=== PATIENT | female | born 1960 | race Two or more races ===

== ENCOUNTER 2024-06-20 03:47 | Inpatient (IN) | payer OTHER ==
[~2024-06-20] VITALS: Ht 180.3 cm; Wt 97.7 kg
[2024-06-20] VITALS (7 sets, daily range): BP systolic 140–159; BP diastolic 78–87; PULSE 80–109; RESP 16–18; TEMP 97.7–98.2; O2SAT 90–98
[~2024-06-20 03:47] MED LIST: ALPR1TAB7 PO; METF-372 PO; SEMA14TA2 PO
[2024-06-20 04:35] LABS: Basophils # (auto) 0.1 10 ^3/uL (0-0.2); Basophils % (auto) 0.7 % (0.0-2.0); Eosinophils # (auto) 0 10 ^3/uL (0-0.8); Monocytes # (auto) 0.8 10 ^3/uL (0-1.3)
[2024-06-20 04:36] LABS: Eosinophils % (auto) 0.2 % (0.0-7.0); Hemoglobin 15.5 g/dL (12.2-16.2); Lymphocytes # (auto) 1.6 10 ^3/uL (0.4-5.4); Lymphocytes % (auto) 8.9 % (10.0-50.0); Mean Corpuscular Hemoglobin 27.7 pg (28.0-32.0); Mean Corpuscular Volume 83.9 fL (80.0-100.0); Monocytes % (auto) 4.6 % (0.0-12.0); Neutrophils # (auto) 15.4 10 ^3/uL (1.6-8.6); Neutrophils % (auto) 85.6 % (37.0-80.0); Platelet Count (auto) 469 10^3/uL (140-450); Red Cell Distribution Width 16.2 % (11.8-14.3); White Blood Cell 17.9 10^3/uL (4.4-10.8)
[2024-06-20 04:51] LABS: Alanine Aminotransferase 35 U/L (7-40); Albumin 4.8 g/dL (3.2-4.8); Alkaline Phosphatase 102 U/L (46-116); Anion Gap 13 (5-15); Aspartate Aminotransferase 24 U/L (13-40); BUN/Creatinine Ratio 20.3 (10.0-20.0); Bilirubin, Total 0.5 mg/dL (0.2-1.0); Blood Urea Nitrogen 30 mg/dL (9-23); Calcium 11.2 mg/dL (8.7-10.4); Carbon Dioxide 26 mmol/L (20-31); Chloride 97 mmol/L (98-107); Lipase 370 U/L (12-53); Sodium 136 mmol/L (136-145); Total Protein 7.7 g/dL (5.7-8.2)
[2024-06-20 04:52] LABS: Glucose 407 mg/dL (74-106)
[2024-06-20 05:10] LABS: Urine Bacteria None Seen /hpf (None Seen)
[2024-06-20 05:43] LABS: Urine Blood TRACE /uL (Negative); Urine Clarity Clear (Clear); Urine Color Light-Yellow (Yellow); Urine Protein, UAD 3+ (Negative); Urine Specific Gravity 1.026 (1.001-1.035); Urine Urobilinogen Normal (Negative); Urine WBC 2 /hpf (0 - 5)
[2024-06-20] MEDS: InsuLIN REG 1unit/0.01ml Soln (100units/ml) SC ONE (05:59)
[2024-06-20] MEDS: SODIUM CHLORIDE 0.9% 1,000 ML IV ONE (06:00)
--- NOTE | 2024-06-20 06:22 | DVH ---
Exam: CT CT AB PEL WO CON-NO ORAL OR IV History: pancreatitis, infection Comparison Study: None available at time of dictation. TECHNIQUE: Multidetector CT of the abdomen and pelvis was performed from lung bases to ischial tubero sities. Imaging was performed without IV contrast using axial images. Coronal and sagittal reformats were obtained from the axial data set by the technologist. Radiation Dose Information: CT Dose: CTDI volume is 20.6 mGy. Dose-length product is 1266.24 mGy*cm FINDINGS: Evaluation of solid organs is limited due to lack of intravenous contrast use. Findings: Lung Bases: No acute or significant lung base finding. Normal heart size. No pleural or pericardial effusion. Liver: The liver is normal in size. No focal lesions. Hepatic steatosis. Gallbladder and Biliary Tree: The gallbladder is surgically absent. No biliary ductal dilatation. Spleen: Unremarkable Pancreas: Peripancreatic fat stranding. Adrenal Glands: There is a 1.5 cm left adrenal low attenuating nodule. The right adrenal is unremark able. Kidneys: Kidneys are grossly normal without calculi or hydronephrosis. GI Tract: The stomach is grossly normal in appearance. Small bowel is normal in caliber. Sigmoid div erticulosis without acute diverticulitis. Normal appendix. Peritoneal cavity: No pneumoperitoneum. No ascites. Lymphadenopathy: No mesenteric, retroperitoneal or periportal lymphadenopathy. Abdominal Wall and Mesentery: Unremarkable. Vasculature: The visualized abdominal aorta is normal in size and caliber. Evaluation of abdominal a nd pelvic vessels is limited due to lack of intravenous contrast. Pelvic Organs: Unremarkable Urinary Bladder: Grossly unremarkable for degree of distention. Musculoskeletal: No aggressive focal bony lesions, acute fractures or dislocation. Soft tissues: Unremarkable IMPRESSION: 1. Acute interstitial pancreatitis. No peripancreatic collections. 2. Hepatic steatosis. 3. Sigmoid diverticulosis without acute diverticulitis. 4. Cholecystectomy. Radiation optimization: All CT scans at this facility use at least one of these dose optimization diana hniques: automated exposure control mA and/or kV adjustment per patient size (includes targeted exam s where dose is matched to clinical indication) or iterative reconstruction.
[2024-06-20] MEDS: ONDANSETRON HCL 4 MG/2 ML VIAL IV ONE (06:25)
--- NOTE | 2024-06-20 08:13 | ED.PDOC ---
General HPI Comments A 63 year old female presents to the ED with the chief complaint of abdominal pain onset yesterday. Patient states she began experiencing epigastric pain yesterday and woke up today around 05:00 am and began experiencing nausea, vomiting. She rates her pain a 7/10. Patient has a past medical history of DM and HTN and states she ran out of strips and has not checked her BS at home for the past few weeks. Upon ED arrival, patient's BS was 407 and at 06:53 patient's BS increased to 444 and was given 10 units of insulin. No other symptoms or modifying factors present at this time. Chief Complaint: Abdominal Pain Time Seen by MD: 07:05 Primary Care Provider: [facility]- Dr. Wren Reviewed notes: Medications, Allergies Allergies: Coded Allergies: NO KNOWN ALLERGIES (Unverified , 06/20/24) Home Meds Reported Medications Alprazolam (Alprazolam) 1 Mg Tab, 1 MG PO HS 06/20/24 Losartan Potassium (Losartan Potassium) 50 Mg Tab, 50 MG PO DAILY 06/20/24 Fenofibrate (FENOFIBRATE) 145 Mg Tab, 145 MG PO DAILY 06/20/24 Gabapentin (Gabapentin) 300 Mg Cap, 300 MG PO TID 06/20/24 Hctz (Hydrochlorothiazide) 25 Mg Tab, 25 MG PO DAILY 06/20/24 Information Source: Patient Mode of Arrival: Ambulatory Severity: Moderate Timing: Days Duration: Since onset Prehospital treatment: None associated signs and symptoms: Abdominal Pain, Nausea, Vomiting Vital Signs Vital Signs Date Time Temp Pulse Resp B/P (MAP) Pulse Ox O2 Delivery O2 Flow Rate FiO2 06/20/24 08:00 109 16 90 Room Air* 0 21 06/20/24 08:00 97.9 155/81 (105) 97.9 Physical Exam GENERAL: AWAKE, ALERT AND ORIENTED. NO ACUTE DISTRESS. SKIN: SKIN IN WARM, DRY AND INTACT WITHOUT RASHES OR LESIONS. APPROPRIATE COLOR FOR ETHNICITY. NAILBEDS PINK WITH NO CYANOSIS. HEENT: THE HEAD IS NORMOCEPHALIC AND ATRAUMATIC. CONJUNCTIVAE ARE CLEAR WITHOUT EXUDATES OR HEMORRHAGE. SCLERA IS NON-ICTERIC. EOM ARE INTACT. NO SIGNS OF NYSTAGMUS. EYELIDS ARE NORMAL IN APPEARANCE WITHOUT SWELLING OR LESIONS. THE EXTERNAL EAR AND EAR CANAL ARE NON-TENDER AND WITHOUT SWELLING. ORAL MUCOSA IS PINK AND MOIST NECK: THE NECK IS SUPPLE WITH NORMAL RANGE OF MOTION. NO JVD. CARDIAC: HEART RATE AND RHYTHM ARE NORMAL. NO MURMURS, GALLOPS, OR RUBS ARE AUSCULTATED. RESPIRATORY: NO SIGNS OF RESPIRATORY DISTRESS. LUNG SOUNDS ARE CLEAR IN ALL LO BES BILATERALLY WITHOUT RALES, RONCHI, OR WHEEZES. ABDOMINAL: ABDOMEN IS SOFT, POSITIVE EPIGASTRIC TENDERNESS. BOWEL SOUNDS ARE PRESENT AND NORMOACTIVE IN ALL FOUR QUADRANTS. NO GUARDING, REBOUND OR RIGIDITY EXTREMITIES: UPPER AND LOWER EXTREMITIES ARE ATRAUMATIC IN APPEARANCE WITHOUT DEFORMITY OR EDEMA. NEUROLOGICAL: THE PATIENT IS AWAKE, ALERT AND ORIENTED TO PERSON, PLACE, AND TIME WITH NORMAL SPEECH. SPEECH IS CLEAR. THERE IS NO FACIAL ASYMMETRY. PSYCHIATRIC: APPROPRIATE MOOD AND AFFECT. GOOD JUDGEMENT AND INSIGHT. NO VISUAL OR AUDITORY HALLUCINATIONS. Review of Systems: REVIEW OF SYSTEMS: NO FEVER, NO CHILLS, OR FATIGUE HEENT: NO SORE THROAT, EARACHE, OR CONGESTION. NO NECK PAIN. CARDIAC: NO CHEST PAIN. NO PALPITATIONS. LUNGS: NO SHORTNESS OF BREATH OR COUGH. GI: POSITIVE NAUSEA, VOMITING. NO HEMATEMESIS. POSITIVE LOOSE STOOL, NO HEMATOCHEZIA. : NO DYSURIA, FREQUENCY, OR URGENCY. NO HEMATURIA. MUSCULOSKELETAL: NO JOINT PAIN OR SWELLING OR EDEMA. SKIN: NO RASH OR ITCHING. NEURO: NO HEADACHE, DIZZINESS, WEAKNESS Past Medical History PAST MEDICAL HISTORY: DM, HTN Surgical History: Cholecystectomy CLINICAL PROJECT COORDINATOR History: No Pertinent CLINICAL PROJECT COORDINATOR History Family History Family History: Reviewed,noncontributory to illness, No family hx of Cancer, No family hx of DM, No family hx of Heart mati, No family hx of HTN, No family hx ofKidney mati, No family hx of Liver mati, No family hx of Lung mati, No family hx of Stroke Social History Smoker: Non-Smoker Alcohol: Denies ETOH Use Drugs: Denies Drug Use Lives In: Home Was a procedure done? Was a procedure done?: No Differential Diagnosis Kidney stone (Female): N/A Other Differential Diagnosis Differential diagnoses considered include: Abdominal aortic aneurysm, SC, esophageal rupture, intestinal obstruction, mesenteric ischemia, perforated viscus or solid organ rupture, CHF with hepatomegaly, pneumonia, abscess, appendicitis, biliary disease, diverticulitis, gastritis, gastroenteritis, hepatitis, hernia, inflammatory bowel disease, pancreatitis, peptic ulcer disease, ureteral colic, constipation, GERD, irritable syndrome, abdominal wall pain, nonspecific abdominal pain, herpes zoster. X-Ray, Labs, Meds, VS Vital Signs Date Time Temp Pulse Resp B/P (MAP) Pulse Ox O2 Delivery O2 Flow Rate FiO2 06/20/24 08:00 109 16 90 Room Air* 0 21 06/20/24 08:00 97.9 109 16 155/81 (105) 90 97.9 06/20/24 06:34 98 Room Air* 0 21 06/20/24 05:39 98.0 122 18 147/87 (107) 94 98.0 06/20/24 03:58 98.6 126 18 135/92 (106) 96 Lab Test 06/20/24 04:24 06/20/24 04:09 06/20/24 04:07 06/20/24 04:06 Range/Units White Blood Count 17.9 H 4.4-10.8 10^3/uL Red Blood Count 5.60 H 4.0-5.20 10^6/uL Hemoglobin 15.5 12.2-16.2 g/dL Hematocrit 47.0 H 36.0-46.0 % Mean Corpuscular Volume 83.9 80.0-100.0 fL Mean Corpuscular Hemoglobin 27.7 L 28.0-32.0 pg Mean Corpuscular Hemoglobin Concent 33.0 32.0-36.0 g/dL Red Cell Distribution Width 16.2 H 11.8-14.3 % Platelet Count 469 H 140-450 10^3/uL Mean Platelet Volume 8.3 6.9-10.8 fL Neutrophils (%) (Auto) 85.6 H 37.0-80.0 % Lymphocytes (%) (Auto) 8.9 L 10.0-50.0 % Monocytes (%) (Auto) 4.6 0.0-12.0 % Eosinophils (%) (Auto) 0.2 0.0-7.0 % Basophils (%) (Auto) 0.7 0.0-2.0 % Neutrophils # (Auto) 15.4 H 1.6-8.6 10 ^3/uL Lymphocytes # (Auto) 1.6 0.4-5.4 10 ^3/uL Monocytes # (Auto) 0.8 0-1.3 10 ^3/uL Eosinophils # (Auto) 0 0-0.8 10 ^3/uL Basophils # (Auto) 0.1 0-0.2 10 ^3/uL Nucleated Red Blood Cells 0.0 % Sodium Level 136 136-145 mmol/L Potassium Level 5.0 3.5-5.1 mmol/L Chloride Level 97 L 98-107 mmol/L Carbon Dioxide Level 26 20-31 mmol/L Anion Gap 13 5-15 Blood Urea Nitrogen 30 H 9-23 mg/dL Creatinine 1.48 H 0.550-1.02 mg/dL Glomerular Filtration Rate Calc 40 >90 mL/min BUN/Creatinine Ratio 20.3 H 10.0-20.0 Serum Glucose 407 *H 74-106 mg/dL Calcium Level 11.2 H 8.7-10.4 mg/dL Total Bilirubin 0.5 0.2-1.0 mg/dL Aspartate Amino Transferase (AST) 24 13-40 U/L Alanine Aminotransferase (ALT) 35 7-40 U/L Alkaline Phosphatase 102 46-116 U/L Total Protein 7.7 5.7-8.2 g/dL Albumin 4.8 3.2-4.8 g/dL Lipase 370 H 12-53 U/L Urine Color Light-yellow Yellow Urine Clarity Clear Clear Urine pH 6.0 5.0-9.0 Urine Specific [place] 1.026 1.001-1.035 Urine Protein 3+ H Negative Urine Ketones 1+ H Negative Urine Blood Trace H Negative /uL Urine Nitrite Negative Negative Urine Bilirubin Negative Negative Urine Urobilinogen Normal Negative mg/dL Urine Leukocyte Esterase Negative Negative /uL Urine RBC 1 0 - 4 /hpf Urine WBC 2 0 - 5 /hpf Urine Squamous Epithelial Cells Few <5 /hpf Urine Bacteria None seen None Seen /hpf Urine Glucose 4+ H Normal mg/dL POC Glucose 407 *H 407 *H 70-106 mg/dl Current Medications Medications (Trade) Dose Ordered Sig/Wagner Route Start Time Stop Time Status Last Admin Insulin Human Regular (InsuLIN R) 10 units ONCE ONCE SC 06/20/24 05:30 06/20/24 05:31 DC 06/20/24 05:59 Sodium Chloride 1,000 ml @ 1,000 mls/hr Q1H ONCE IV 06/20/24 06:00 06/20/24 06:59 DC 06/20/24 06:00 Ondansetron HCl (Zofran) 4 mg ONCE ONCE IV 06/20/24 06:00 06/20/24 06:01 DC 06/20/24 06:25 [place] [id number] Ph: [phone] DIAGNOSTIC IMAGING Diagnostic Imaging Report : [id number] Signed PATIENT: VANESSA MEDEROSACCT: [id number] UNIT: [id number] : 1960 LOC: ER ROOM / BED: / AGE / SEX: 63 / F ADM STATUS: REG ER SERVICE [id number] ORDERING PHYSICIAN: ANTONETTE BURGER MD PROCEDURE(s): ABPL - CT AB PEL WO CON-NO ORAL OR IV REASON: pancreatitis, infection ORDER NUMBER(s): [id number], ACCESSION NUMBER(s): [id number] Exam: CT CT AB PEL WO CON-NO ORAL OR IV History: pancreatitis, infection Comparison Study: None available at time of dictation. TECHNIQUE: Multidetector CT of the abdomen and pelvis was performed from lung bases to ischial tuberosities. Imaging was performed without IV contrast using axial images. Coronal and sagittal reformats were obtained from the axial data set by the technologist. Radiation Dose Information: CT Dose: CTDI volume is 20.6 mGy. Dose-length product is 1266.24 mGy*cm FINDINGS: Evaluation of solid organs is limited due to lack of intravenous contrast use. Findings: Lung Bases: No acute or significant lung base finding. Normal heart size. No pleural or pericardial effusion. Liver: The liver is normal in size. No focal lesions. Hepatic steatosis. Gallbladder and Biliary Tree: The gallbladder is surgically absent. No biliary ductal dilatation. Spleen: Unremarkable Pancreas: Peripancreatic fat stranding. Adrenal Glands: There is a 1.5 cm left adrenal low attenuating nodule. The right adrenal is unremarkable. Kidneys: Kidneys are grossly normal without calculi or hydronephrosis. GI Tract: The stomach is grossly normal in appearance. Small bowel is normal in caliber. Sigmoid diverticulosis without acute diverticulitis. Normal appendix. Peritoneal cavity: No pneumoperitoneum. No ascites. Lymphadenopathy: No mesenteric, retroperitoneal or periportal lymphadenopathy. Abdominal Wall and Mesentery: Unremarkable. Vasculature: The visualized abdominal aorta is normal in size and caliber. Evaluation of abdominal and pelvic vessels is limited due to lack of intravenous contrast. Pelvic Organs: Unremarkable Urinary Bladder: Grossly unremarkable for degree of distention. Musculoskeletal: No aggressive focal bony lesions, acute fractures or dislocation. Soft tissues: Unremarkable IMPRESSION: 1. Acute interstitial pancreatitis. No peripancreatic collections. 2. Hepatic steatosis. 3. Sigmoid diverticulosis without acute diverticulitis. 4. Cholecystectomy. Radiation optimization: All CT scans at this facility use at least one of these dose optimization techniques: automated exposure control mA and/or kV adjustment per patient size (includes targeted exams where dose is matched to clinical indication) or iterative reconstruction. ATED BY: LAYLA SZYMANSKI MD DICTATED DATE/TIME: 06/20/24618 SIGNED BY: LAYLA SZYMANSKI MD SIGNED DATE/TIME: 06/20/24618 CC: Time of 1ST Reevaluation: 07:35 Reevaluation 1ST: N/A Patient Education/Counseling: Diagnosis, Treatment, Prognosis Family Education/Counseling: No Family Present Comments (Due to unavailability of ER rooms/beds, the patient was initially seen and examined in the ER hallway in order to expedite care. The patient was offered the option to wait for a private ER room/bed to become available but opted to proceed with the hallway examination. ) Departure 1 Departure Time of Disposition: 08:51 Impression: Primary Impression: Acute pancreatitis Additional Impressions: Diabetes mellitus Hyperglycemia Disposition: 09 ADMITTED INPATIENT Condition: Stable Comments 63-YEAR-OLD FEMALE WHO PRESENTED WITH 1 DAY OF EPIGASTRIC PAIN, NAUSEA, VOMITING. WORKUP REVEALS ACUTE PANCREATITIS ASSOCIATED WITH HYPERGLYCEMIA WITHOUT DKA. INSULIN AND IV FLUIDS ADMINISTERED IN THE EMERGENCY DEPARTMENT. PATIENT ADMITTED FOR FURTHER TREATMENT, EVALUATION AND MONITORING. Critical Care Note Critical Care Time?: No Stability Stability form required: No I personally scribed for YOLANDA DE LEON MD ([email or web address]) on 06/20/24 at 08:13. Electronically submitted by Liana Balderrama ([email or web address]). I personally scribed for YOLANDA DE LEON MD ([email or web address]) on 06/20/24 at 08:36. Electronically submitted by Liana Balderrama ([email or web address]). YOLANDA DE LEON MD Jun 20, 2024 08:13
[2024-06-20] MEDS ORDERED: DEXTROSE (50%) 50ML SYRG IV PRN (10:30)
[2024-06-20] MEDS ORDERED: ALPRAZolam 0.5 MG TAB PO PRN (10:30)
[2024-06-20] MEDS ORDERED: FENO145T27 PO (10:32)
[2024-06-20] MEDS ORDERED: GABA-1250 PO (10:32)
[2024-06-20] MEDS ORDERED: LOSA-534 PO (10:32)
[2024-06-20] MEDS ORDERED: HYDR25TA5 PO (10:32)
[2024-06-20] MEDS: LACTATED RINGER'S 1,000 ML IV SCH (10:44)
[2024-06-20] MEDS: ACCU-CHEK COMFORT CURVE STRIP VI SCH (11:12)
[2024-06-20] MEDS: ONDANSETRON HCL 4 MG/2 ML VIAL IV PRN (11:24)
--- NOTE | 2024-06-20 11:31 | DVHHP2 ---
History of Present Illness Reason for Visit: Abdominal pain History of Present Illness 63-year-old female presented to the ED with chief complaint of abdominal pain onset was yesterday, patient describes it as epigastric pain with nausea and vomiting, loose stools, pain is 7/10. Patient reports running out of strips for her Accu-Chek machine and not checking blood sugar at home for the past few weeks. Patient is also noted to have been taking Rybelsus. Upon arrival to the ED patient's blood sugar was 407. CT of the abdomen and pelvis show pancreatitis, WBCs 17.9, absolute neutrophils 15.4, chloride 97, BUN 30, creatinine 1.48, lipase 370. Patient was placed on fluids, pain meds p.r.n., Accu-Cheks q.4 with aggressive insulin sliding scale coverage until blood sugars are under control. Last episode of vomiting was early this morning prior to hospital. Patient denies chest pain, headache, dizziness, diaphoresis, shortness of breath, vomiting, fever, or chills endorsed by the patient. Patient was admitted for further evaluation medical management. Past Medical History Diabetes mellitus type 2, hypertension, hyperlipidemia, obesity Past Surgical History Cholecystectomy, tubal ligation Family History Reviewed noncontributory to the management of this case Smoke: <1 pack per day ALCOHOL: none Drugs: None Lives: Alone Review of Systems Constitutional: No: Fever, Chills, Sweats, Weakness, Malaise, Other Eyes: No: Pain, Vision change, Conjunctivae inflammation, Eyelid inflammation, Other, Redness ENT: No: Ear pain, Ear discharge, Nose pain, Nose discharge, Nose congestion, Mouth pain, Mouth swelling, Throat pain, Throat swelling, Other Respiratory: No: Cough, Dry, Shortness of breath, SOB with excertion, Wheezing, Hemoptysis, Pleuritic Pain, Sputum, Wheezing, Other Cardiovascular: No: Chest Pain, Palpitations, Orthopnea, Paroxysmal Noc. Dyspnea, Edema, Lt Headedness, Other Gastrointestinal: Nausea, Vomiting, Abdominal Pain; No: Diarrhea, Constipation, Melena, Hematochezia, Other Genitourinary: No Dysuria, No Frequency, No Incontinence, No Hematuria, No Retention, No Other Musculoskeletal: No: other, neck pain, shoulder pain, arm pain, back pain, hand pain, leg pain, foot pain Skin: No: Rash, Lesions, Jaundice, Bruising, Other Neurological: No: Weakness, Numbness, Incoordination, Change in speech, Confusion, Seizures, Other Allergies: Coded Allergies: NO KNOWN ALLERGIES (Unverified , 06/20/24) Medications Current Medications Medications Dose Ordered Sig/Wagner Route Start Time Stop Time Status Last Admin Dose Admin Ondansetron HCl 4 mg Q4HP PRN IV 06/20/24 10:15 Morphine Sulfate 2 mg Q4HPRN PRN IV 06/20/24 10:15 Lactated Ringer's 1,000 ml @ 125 mls/hr Q8H IV 06/20/24 10:15 06/20/24 10:44 125 MLS/HR Diagnostic Test (Pha) 1 strip IQ4HR 06/20/24 12:00 06/20/24 11:12 1 STRIP Insulin Human Regular IQ4HR SC 06/20/24 12:00 Dextrose 50 ml UD PRN IV 06/20/24 10:30 Gabapentin 300 mg TID PO 06/20/24 14:00 Hydrochlorothiazide 25 mg DAILY PO 06/21/24 10:00 Losartan Potassium 50 mg DAILY PO 06/21/24 10:00 Alprazolam 1 mg HS PRN PO 06/20/24 10:30 Exam Vital Signs Vital Signs Date Time Temp Pulse Resp B/P (MAP) Pulse Ox O2 Delivery O2 Flow Rate FiO2 06/20/24 10:25 98.0 107 17 143/82 (102) 91 98.0 06/20/24 08:00 Room Air* 0 21 General Appearance: Alert, Oriented X3, Cooperative, mild distress HEENT: Atraumatic, PERRLA, EOMI, Mucous membr. moist/pink Respiratory: Clear to auscultation, Normal air movement Cardiovascular: Regular rate, Normal S1, Normal S2, No murmurs Abdominal: Normal bowel sounds, Soft, No hepatospenomegaly, No masses, Other (Abdominal tenderness left upper abdomen and mid abdomen) Extremities: No clubbing, No cyanosis, No edema, Normal pulses, No tenderness/swelling Skin: No rashes, No breakdown, No significant lesion Neuro: Normal gait, Normal speech, Strength at 5/5 X4 ext, Normal tone, Sensation intact, Cranial nerves 3-12 NL, Reflexes 2+ Psych/Mental Status: Mental status NL, Mood NL Labs/Xrays Labs, imaging and ED notes reviewed Labs Test 06/20/24 11:00 06/20/24 04:24 06/20/24 04:09 Range/Units POC Glucose 331 H 70-106 mg/dl White Blood Count 17.9 H 4.4-10.8 10^3/uL Red Blood Count 5.60 H 4.0-5.20 10^6/uL Hemoglobin 15.5 12.2-16.2 g/dL Hematocrit 47.0 H 36.0-46.0 % Mean Corpuscular Volume 83.9 80.0-100.0 fL Mean Corpuscular Hemoglobin 27.7 L 28.0-32.0 pg Mean Corpuscular Hemoglobin Concent 33.0 32.0-36.0 g/dL Red Cell Distribution Width 16.2 H 11.8-14.3 % Platelet Count 469 H 140-450 10^3/uL Mean Platelet Volume 8.3 6.9-10.8 fL Neutrophils (%) (Auto) 85.6 H 37.0-80.0 % Lymphocytes (%) (Auto) 8.9 L 10.0-50.0 % Monocytes (%) (Auto) 4.6 0.0-12.0 % Eosinophils (%) (Auto) 0.2 0.0-7.0 % Basophils (%) (Auto) 0.7 0.0-2.0 % Neutrophils # (Auto) 15.4 H 1.6-8.6 10 ^3/uL Lymphocytes # (Auto) 1.6 0.4-5.4 10 ^3/uL Monocytes # (Auto) 0.8 0-1.3 10 ^3/uL Eosinophils # (Auto) 0 0-0.8 10 ^3/uL Basophils # (Auto) 0.1 0-0.2 10 ^3/uL Nucleated Red Blood Cells 0.0 % Sodium Level 136 136-145 mmol/L Potassium Level 5.0 3.5-5.1 mmol/L Chloride Level 97 L 98-107 mmol/L Carbon Dioxide Level 26 20-31 mmol/L Anion Gap 13 5-15 Blood Urea Nitrogen 30 H 9-23 mg/dL Creatinine 1.48 H 0.550-1.02 mg/dL Glomerular Filtration Rate Calc 40 >90 mL/min BUN/Creatinine Ratio 20.3 H 10.0-20.0 Serum Glucose 407 *H 74-106 mg/dL Calcium Level 11.2 H 8.7-10.4 mg/dL Total Bilirubin 0.5 0.2-1.0 mg/dL Aspartate Amino Transferase (AST) 24 13-40 U/L Alanine Aminotransferase (ALT) 35 7-40 U/L Alkaline Phosphatase 102 46-116 U/L Total Protein 7.7 5.7-8.2 g/dL Albumin 4.8 3.2-4.8 g/dL Lipase 370 H 12-53 U/L Urine Color Light-yellow Yellow Urine Clarity Clear Clear Urine pH 6.0 5.0-9.0 Urine Specific [place] 1.026 1.001-1.035 Urine Protein 3+ H Negative Urine Ketones 1+ H Negative Urine Blood Trace H Negative /uL Urine Nitrite Negative Negative Urine Bilirubin Negative Negative Urine Urobilinogen Normal Negative mg/dL Urine Leukocyte Esterase Negative Negative /uL Urine RBC 1 0 - 4 /hpf Urine WBC 2 0 - 5 /hpf Urine Squamous Epithelial Cells Few <5 /hpf Urine Bacteria None seen None Seen /hpf Urine Glucose 4+ H Normal mg/dL Assessment/Plan Assessment/Plan Acute pancreatitis Admit to medical/surgical Pain medications p.r.n. Friend p.r.n. nausea Acute kidney failure Consult nephrology- follow up recommendations Monitor labs Supplement as needed Uncontrolled diabetes mellitus type 2 Accu-Cheks a.c. HS Aggressive insulin sliding scale FEN/PPX Clear liquid diet IV fluids to LR Plan discussed with: Patient My Orders Orders - ANTONIO RIVERA SYSTEMS SECURITY ANALYST Procedure Category Date Status Time Admit ADMIT 06/20/24 Transmitted 10:04 Code Status CODE 06/20/24 Transmitted 10:04 Vital Signs [facility] 06/20/24 In Process 10:04 Review Orders With [facility] 06/20/24 In Process Adm. 10:04 Up Ad Azul [facility] 06/20/24 In Process 10:04 Notify Md Of Changes [facility] 06/20/24 In Process From Base 10:04 Advance Directive [facility] 06/20/24 In Process 10:04 Complete Blood Count LAB 06/21/24 Verified 04:00 Patient Condition ORDERS 06/20/24 Transmitted 10:04 Allergies GILMA 06/20/24 In Process 10:04 Ondansetron Hcl PHA 06/20/24 In Process (Zofran) 10:15 Morphine Sulfate PHA 06/20/24 In Process Injection 10:15 Comprehensive LAB 06/21/24 Verified Metabolic Panel 04:00 Lactated Ringer's PHA 06/20/24 In Process 10:15 Clear Liq Diet DIET 06/20/24 Transmitted Lunch Glucose Blood PHA 06/20/24 In Process (Accu-Chek Comfort 12:00 Insulin R (Human) PHA 06/20/24 In Process (Insulin R) 12:00 Dextrose 50% Syringe PHA 06/20/24 In Process 10:30 Gabapentin Capsule PHA 06/20/24 In Process (Neurontin Capsule) 14:00 Hydrochlorothiazide PHA 06/21/24 In Process Tablet (Hydrochlorot 10:00 Losartan Tablet PHA 06/21/24 In Process (Cozaar Tablet) 10:00 Alprazolam Tablet PHA 06/20/24 In Process (Xanax Tablet) 10:30 Date of Service: Jun 20, 2024 Billing Provider: ANTONIO RIVERA Common Visit Codes: [id number] INP/OBS CARE (HIGH) ANTONIO RIVERA Jun 20, 2024 11:31
[2024-06-20] MEDS: InsuLIN REG 1unit/0.01ml Soln (100units/ml) SC SCH (12:06)
--- NOTE | 2024-06-20 13:33 | DVHINCON2 ---
Date of service: Jun 20, 2024 Referring Physician ANTONIO RIVERA Reason for Consultation Acute kidney injury History of Present Illness Patient is a 63-year-old female past medical history of hypertension diabetes mellitus and hyperlipidemia and neuropathy who was admitted with severe epiga stric pain associated with nausea vomiting for one day. On admission patient found to have elevated BUN creatinine nephrology is consulted for acute kidney injury Past Medical History Diabetes mellitus Hypertension Hyperlipidemia Neuropathy Past Surgical History Patient denies Allergies: Coded Allergies: NO KNOWN ALLERGIES (Unverified , 06/20/24) Home Meds Reported Medications Alprazolam (Alprazolam) 1 Mg Tab, 1 MG PO HS 06/20/24 Losartan Potassium (Losartan Potassium) 50 Mg Tab, 50 MG PO DAILY 06/20/24 Fenofibrate (FENOFIBRATE) 145 Mg Tab, 145 MG PO DAILY 06/20/24 Gabapentin (Gabapentin) 300 Mg Cap, 300 MG PO TID 06/20/24 Hctz (Hydrochlorothiazide) 25 Mg Tab, 25 MG PO DAILY 06/20/24 Current Medications Current Medications Medications (Trade) Dose Ordered Sig/Wagner Route PRN Reason Start Time Stop Time Status Last Admin Hydrochlorothiazide (hydroCHLOROthiazide TABLET) 25 mg DAILY PO 06/21/24 10:00 06/21/24 09:27 Losartan Potassium (Cozaar Tablet) 50 mg DAILY PO 06/21/24 10:00 Acetaminophen/ Hydrocodone Bitart ([place] 10/325MG Tab) 1 tab Q4HP PRN PO MODERATE PAIN (4-6 PAIN SCALE) 06/21/24 10:30 06/21/24 11:29 Review of Systems All 12 items ROS reviewed with the patient none is significant except what is mentioned in the HPI H&P Exam Vital Signs/I&O Vital Sign Date Time Temp Pulse Resp B/P (MAP) Pulse Ox O2 Delivery O2 Flow Rate FiO2 06/21/24 16:58 98.2 89 17 122/78 (93) 93 98.2 06/21/24 08:00 Room Air* 0 21 Intake and Output 06/20/24 06/21/24 19:00 07:00 Intake Total 1375 ml 1125 ml Balance 1375 ml 1125 ml Intake Oral 0 ml 500 ml IV Total 1375 ml 625 ml # Voids 1 Physical Exam Patient awake and alert Moderate abdominal distress Lung: clear b/l COR: RRR GI: epigastric tenderness . NL Ext: no CCE Neuro: none focal Labs/Diagnostic Data Labs/Diagnostic Data Laboratory Tests Test 06/21/24 12:39 06/21/24 09:30 06/21/24 05:53 06/20/24 19:52 Range/Units POC Glucose 181 H 197 H 200 H 70-106 mg/dl White Blood Count 10.9 #H 4.4-10.8 10^3/uL Red Blood Count 4.90 4.0-5.20 10^6/uL Hemoglobin 13.7 12.2-16.2 g/dL Hematocrit 40.9 # 36.0-46.0 % Mean Corpuscular Volume 83.5 80.0-100.0 fL Mean Corpuscular Hemoglobin 27.9 L 28.0-32.0 pg Mean Corpuscular Hemoglobin Concent 33.4 32.0-36.0 g/dL Red Cell Distribution Width 16.0 H 11.8-14.3 % Platelet Count 307 140-450 10^3/uL Mean Platelet Volume 8.3 6.9-10.8 fL Neutrophils (%) (Auto) 74.6 37.0-80.0 % Lymphocytes (%) (Auto) 16.8 10.0-50.0 % Monocytes (%) (Auto) 7.2 0.0-12.0 % Eosinophils (%) (Auto) 1.0 0.0-7.0 % Basophils (%) (Auto) 0.4 0.0-2.0 % Neutrophils # (Auto) 8.1 1.6-8.6 10 ^3/uL Lymphocytes # (Auto) 1.8 0.4-5.4 10 ^3/uL Monocytes # (Auto) 0.8 0-1.3 10 ^3/uL Eosinophils # (Auto) 0.1 0-0.8 10 ^3/uL Basophils # (Auto) 0 0-0.2 10 ^3/uL Nucleated Red Blood Cells 0.1 % Sodium Level 139 136-145 mmol/L Potassium Level 3.8 3.5-5.1 mmol/L Chloride Level 101 98-107 mmol/L Carbon Dioxide Level 29 20-31 mmol/L Anion Gap 9 5-15 Blood Urea Nitrogen 25 H 9-23 mg/dL Creatinine 1.20 H 0.550-1.02 mg/dL Glomerular Filtration Rate Calc 52 >90 mL/min BUN/Creatinine Ratio 20.8 H 10.0-20.0 Serum Glucose 189 H 74-106 mg/dL Calcium Level 9.8 8.7-10.4 mg/dL Total Bilirubin 0.5 0.2-1.0 mg/dL Aspartate Amino Transferase (AST) 15 13-40 U/L Alanine Aminotransferase (ALT) 20 7-40 U/L Alkaline Phosphatase 85 46-116 U/L Total Protein 6.1 5.7-8.2 g/dL Albumin 3.8 3.2-4.8 g/dL Test 06/20/24 16:33 06/20/24 11:00 06/20/24 04:24 06/20/24 04:09 Range/Units POC Glucose 272 H 331 H 70-106 mg/dl White Blood Count 17.9 H 4.4-10.8 10^3/uL Red Blood Count 5.60 H 4.0-5.20 10^6/uL Hemoglobin 15.5 12.2-16.2 g/dL Hematocrit 47.0 H 36.0-46.0 % Mean Corpuscular Volume 83.9 80.0-100.0 fL Mean Corpuscular Hemoglobin 27.7 L 28.0-32.0 pg Mean Corpuscular Hemoglobin Concent 33.0 32.0-36.0 g/dL Red Cell Distribution Width 16.2 H 11.8-14.3 % Platelet Count 469 H 140-450 10^3/uL Mean Platelet Volume 8.3 6.9-10.8 fL Neutrophils (%) (Auto) 85.6 H 37.0-80.0 % Lymphocytes (%) (Auto) 8.9 L 10.0-50.0 % Monocytes (%) (Auto) 4.6 0.0-12.0 % Eosinophils (%) (Auto) 0.2 0.0-7.0 % Basophils (%) (Auto) 0.7 0.0-2.0 % Neutrophils # (Auto) 15.4 H 1.6-8.6 10 ^3/uL Lymphocytes # (Auto) 1.6 0.4-5.4 10 ^3/uL Monocytes # (Auto) 0.8 0-1.3 10 ^3/uL Eosinophils # (Auto) 0 0-0.8 10 ^3/uL Basophils # (Auto) 0.1 0-0.2 10 ^3/uL Nucleated Red Blood Cells 0.0 % Sodium Level 136 136-145 mmol/L Potassium Level 5.0 3.5-5.1 mmol/L Chloride Level 97 L 98-107 mmol/L Carbon Dioxide Level 26 20-31 mmol/L Anion Gap 13 5-15 Blood Urea Nitrogen 30 H 9-23 mg/dL Creatinine 1.48 H 0.550-1.02 mg/dL Glomerular Filtration Rate Calc 40 >90 mL/min BUN/Creatinine Ratio 20.3 H 10.0-20.0 Serum Glucose 407 *H 74-106 mg/dL Hemoglobin A1c 10.2 H <5.7 % A1C Uric Acid 9.9 H 3.1-7.8 mg/dL Calcium Level 11.2 H 8.7-10.4 mg/dL Phosphorus Level 4.7 2.4-5.1 mg/dL Magnesium Level 2.1 1.6-2.6 mg/dL Total Bilirubin 0.5 0.2-1.0 mg/dL Aspartate Amino Transferase (AST) 24 13-40 U/L Alanine Aminotransferase (ALT) 35 7-40 U/L Alkaline Phosphatase 102 46-116 U/L B-Type Natriuretic Peptide 11.67 0-100 pg/mL Total Protein 7.7 5.7-8.2 g/dL Albumin 4.8 3.2-4.8 g/dL Lipase 370 H 12-53 U/L Vitamin D 25-Hydroxy 23.1 L 30.0-100 ng/mL Parathyroid Hormone (Intact) 15.2 L 18.4-80.1 pg/mL Urine Color Light-yellow Yellow Urine Clarity Clear Clear Urine pH 6.0 5.0-9.0 Urine Specific [place] 1.026 1.001-1.035 Urine Protein 3+ H Negative Urine Ketones 1+ H Negative Urine Blood Trace H Negative /uL Urine Nitrite Negative Negative Urine Bilirubin Negative Negative Urine Urobilinogen Normal Negative mg/dL Urine Leukocyte Esterase Negative Negative /uL Urine RBC 1 0 - 4 /hpf Urine WBC 2 0 - 5 /hpf Urine Squamous Epithelial Cells Few <5 /hpf Urine Bacteria None seen None Seen /hpf Urine Creatinine 41.09 30.0-125.0 mg/dL Urine Protein/Creatinine Ratio 6.91 Urine Sodium 32 L 40-220 mmol/L Urine Glucose 4+ H Normal mg/dL Urine Total Protein 283.9 H 1-14 mg/dL Test 06/20/24 04:07 06/20/24 04:06 Range/Units POC Glucose 407 *H 407 *H 70-106 mg/dl Assessment Acute kidney injury superimposed Chronic Kidney Disease secondary hemodynamic mediated Acute pancreatitis, likely due to GLP1-RA Diabetes mellitus type 2 Hyperglycemia Dehydration Hypertension Hyperlipidemia Recommendations Closely monitor fluid and electrolytes Avoid nephrotoxic medications Strict I&Os I agree with IV fluid hydration d/c GLP1-RA Insulin sliding scale Check urine electrolytes and urine protein excretion Kidney reported within normal limit on CT scan Pain management GI consult We will continue to follow Patient seen and examined by myself. I discussed my plan of care with the patient and primary nurse at the bedside I would like to thank ANTONIO for the consult, will follow up Plan discussed with: Patient ERI TIRADO MD Jun 20, 2024 13:33
[2024-06-20] MEDS: GABAPENTIN 300 MG CAP PO SCH (14:00)
[2024-06-20 14:01] LABS: Creatinine, Urine 41.09 mg/dL (30.0-125.0)
[2024-06-20 14:04] LABS: Protein, Urine 283.9 mg/dL (1-14); Urine Protein/Creatinine Ratio 6.91
[2024-06-20 14:20] LABS: Magnesium 2.1 mg/dL (1.6-2.6)
[2024-06-20 14:22] LABS: Phosphorus 4.7 mg/dL (2.4-5.1)
[2024-06-20] MEDS: MORPHINE SULFATE INJ 2 MG/ml SYRG IV PRN (17:13)
[2024-06-21] VITALS (7 sets, daily range): BP systolic 122–142; BP diastolic 60–98; PULSE 85–91; RESP 16–18; TEMP 98.1–98.3; O2SAT 92–93
[2024-06-21 06:58] LABS: Basophils # (auto) 0 10 ^3/uL (0-0.2); Basophils % (auto) 0.4 % (0.0-2.0); Eosinophils # (auto) 0.1 10 ^3/uL (0-0.8); Hematocrit 40.9 % (36.0-46.0); Hemoglobin 13.7 g/dL (12.2-16.2); Lymphocytes # (auto) 1.8 10 ^3/uL (0.4-5.4); Lymphocytes % (auto) 16.8 % (10.0-50.0); Mean Corpuscular Hemoglobin 27.9 pg (28.0-32.0); Mean Corpuscular Hgb Conc. 33.4 g/dL (32.0-36.0); Mean Corpuscular Volume 83.5 fL (80.0-100.0); Monocytes # (auto) 0.8 10 ^3/uL (0-1.3); Monocytes % (auto) 7.2 % (0.0-12.0); Neutrophils # (auto) 8.1 10 ^3/uL (1.6-8.6); Neutrophils % (auto) 74.6 % (37.0-80.0); Nucleated Red Blood Cells % 0.1 %; Platelet Count (auto) 307 10^3/uL (140-450); White Blood Cell 10.9 10^3/uL (4.4-10.8)
[2024-06-21 07:17] LABS: Alanine Aminotransferase 20 U/L (7-40); Albumin 3.8 g/dL (3.2-4.8); Alkaline Phosphatase 85 U/L (46-116); Anion Gap 9 (5-15); BUN/Creatinine Ratio 20.8 (10.0-20.0); Blood Urea Nitrogen 25 mg/dL (9-23); Calcium 9.8 mg/dL (8.7-10.4); Carbon Dioxide 29 mmol/L (20-31); Chloride 101 mmol/L (98-107); Glucose 189 mg/dL (74-106); Potassium 3.8 mmol/L (3.5-5.1); Sodium 139 mmol/L (136-145)
[2024-06-21 07:18] LABS: Aspartate Aminotransferase 15 U/L (13-40); Bilirubin, Total 0.5 mg/dL (0.2-1.0); Total Protein 6.1 g/dL (5.7-8.2)
[2024-06-21] MEDS: LOSARTAN POTASSIUM 50 MG TAB PO SCH (09:22)
[2024-06-21] MEDS: hydroCHLOROthiazide 25 MG TAB PO SCH (09:27)
[2024-06-21] MEDS: HYDROcodone-ACET 10/325MG TAB PO PRN (11:29)
--- NOTE | 2024-06-21 13:39 | DVHPN2 ---
Progress Note Date Seen: Jun 21, 2024 Resident Creating Document: JHAJSTEPHANIE RivasSUSANBURKE RESIDENT Medical Necessity Reason Pt with a Central, PICC or Fol: No Subjective Review of Systems Patient is a 63-year-old female with a past medical history of type 2 diabetes mellitus, hypertension, hyperlipidemia came to the ED with a chief complaint of abdominal pain for 1 day prior to admission. Patient reported epigastric abdominal pain associated with nausea and vomiting pain radiating to the back. On admission patient found to have elevated BUN and creatinine nephrology was consulted for acute kidney injury Review of systems Patient seen and examined at the bedside. Patient is alert and oriented to time, place and person. Patient's blood pressure at the time of examination 122/64 mmHg, heart rate 90 per minute regular, SpO2 92% on room air. Patient complains of mild abdominal pain and moderate tenderness in the epigastrium. Patient reported that she is tolerating water without any nausea or vomiting. Other Systems: Patient seen and examined by myself with the resident, I agree with his assement and plan Objective vital signs Vital Sign Date Time Temp Pulse Resp B/P (MAP) Pulse Ox O2 Delivery O2 Flow Rate FiO2 06/21/24 09:27 122/64 06/21/24 09:01 98.3 90 17 92 98.3 06/21/24 08:00 Room Air* 0 21 Total Intake and Output 06/20/24 06/20/24 06/21/24 15:00 23:00 07:00 Intake Total 1000 ml 1000 ml 500 ml Balance 1000 ml 1000 ml 500 ml medications Current Medications Medications Dose Ordered Sig/Wagner Route Start Time Stop Time Status Last Admin Dose Admin Ondansetron HCl 4 mg Q4HP PRN IV 06/20/24 10:15 06/20/24 17:13 4 MG Morphine Sulfate 2 mg Q4HPRN PRN IV 06/20/24 10:06/20/24 17:13 2 MG Lactated Ringer's 1,000 ml @ 125 mls/hr Q8H IV 06/20/24 10:15 06/21/24 09:39 125 MLS/HR Diagnostic Test (Pha) 1 strip IQ4HR 06/20/24 12:00 06/21/24 12:37 1 STRIP Insulin Human Regular IQ4HR SC 06/20/24 12:00 10/30/24 12:46 4 UNITS Dextrose 50 ml UD PRN IV 06/20/24 10:30 Gabapentin 300 mg TID PO 06/20/24 14:00 06/21/24 05:25 300 MG Hydrochlorothiazide 25 mg DAILY PO 06/21/24 10:00 06/21/24 09:27 25 MG Losartan Potassium 50 mg DAILY PO 06/21/24 10:00 Alprazolam 1 mg HS PRN PO 06/20/24 10:30 Acetaminophen/ Hydrocodone Bitart 1 tab Q4HP PRN PO 06/21/24 10:30 06/21/24 11:29 1 TAB Examination Physical Examination Gen - no pallor, no icterus, no cyanosis, no clubbing, no LAD, no edema . Skin - Patients skin is warm and dry.. HEENT - normocephalic, atraumatic, moist mucous membranes. Neck - full ROM, no LAD, no JVD Pulmonary - B/L vesicular breath sounds. no crackles , no wheezing, no stridor. cardiovascular - normal S1,S2 heard. no murmurs heard. peripheral pulses normal radial 2+, pedal 2+. capillary refill normal <2 secs. GI - soft abdomen with tenderness to palpation in the epigastrium . no hepatospleenomegaly. Bowel sounds+ Neurological - Patient is A/O X 3 . Bilateral upper extremity strength 5/5, bilateral lower extremity strength 5/5, no facial droop, normal speech, no tremor, no sensory deficiets. laboratory and microbiology Laboratory Tests 06/21/24 05:53 Test 06/21/24 05:53 Range/Units Serum Glucose 189 H 74-106 mg/dL Problem List/Assessment/Plan Problem List/Assessment/Plan Assessment and plan # ILANA prerenal on CKD likely hemodynamically mediated - serum creatinine 1.48--> 1.2 - BUN 30--> 25 - GFR 40-->52 - serum sodium 136--> 139 - serum potassium 5--> 3.8 - urine sodium 32 - urine creatinine 41 - FENa 0.8% - patient's serum creatinine and BUN improving after she was started on IV fluids Ringer's lactate at 125 mL/hour - avoid nephrotoxic medication - continue IV fluids and BMP monitoring # CKD likely stage III due to probable diabetic nephropathy - GFR @ 52ml/min - patient has 3+ urine protein - urine total protein to 283.9 mg/dL - urine glucose 4+ - PTH 15.2 pg/mL - patient was advised to be started on KAYLYNN Inhib/ ARB, SGLT 2 inhibitor for management of CKD - patient advised to follow up in the outpatient clinic for further workup of CKD # uncontrolled type 2 diabetes mellitus - HbA1c 10.7 % - patient reported be taking Rybelsus - insulin sliding scale # acute pancreatitis - elevated lipase level - CT abdomen pelvis without contrast showing peripancreatic fat stranding, hepatic steatosis - managed as per hospitalist # dehydration - on IV fluids Goals of care discussed with the patient for over 25 minutes. Full code. Plan discussed with Plan discussed with: Patient PROMISE CANDELARIA Jun 21, 2024 13:39 ERI TIRADO MD Jun 21, 2024 17:26
--- NOTE | 2024-06-21 22:51 | DVHPN2 ---
Subjective History of Present Illness 63-year-old female presented to the ED with chief complaint of abdominal pain onset was yesterday, patient describes it as epigastric pain with nausea and vomiting, loose stools, pain is 7/10. Patient reports running out of strips for her Accu-Chek machine and not checking blood sugar at home for the past few weeks. Patient is also noted to have been taking Rybelsus. Upon arrival to the ED patient's blood sugar was 407. CT of the abdomen and pelvis show pancreatitis, WBCs 17.9, absolute neutrophils 15.4, chloride 97, BUN 30, creatinine 1.48, lipase 370. Patient was placed on fluids, pain meds p.r.n., Accu-Cheks q.4 with aggressive insulin sliding scale coverage until blood sugars are under control. Last episode of vomiting was early this morning prior to hospital. Patient denies chest pain, headache, dizziness, diaphoresis, shortness of breath, vomiting, fever, or chills endorsed by the patient. Update -06/21 patient is feeling better, still has some pain in requiring p.r.n. analgesia. Still not hungry, has some nausea still. Not yet ready to tolerate Reviewed: H&P Changes from previous H/P or p: No Changes General: Per HPI Musculoskeletal: No other, No neck pain, No shoulder pain, No arm pain, No back pain, No hand pain, No leg pain, No foot pain Skin: No Rash, No Lesions, No Jaundice, No Bruising, No Other Objective Vitals Vital Signs Date Time Temp Pulse Resp B/P (MAP) Pulse Ox O2 Delivery O2 Flow Rate FiO2 06/21/24 16:58 98.2 89 17 122/78 (93) 93 98.2 06/21/24 08:00 Room Air* 0 21 Intake/Output Intake and Output 06/21/24 07:00 Intake Total 2500 ml Balance 2500 ml Intake Oral 500 ml IV Total 2000 ml # Voids 1 Exam - GEN: Healthy appearing, well-developed, NAD. - HEENT: NC/AT, PERRLA, MMM. - CV: RRR, no m/r/g. - LUNGS: CTAB, no w/r/c. - ABD: Soft, epigastric tenderness, NBS, no masses or organomegaly. - EXTREM: Warm, well perfused. pulses +2 all limbs. - NEURO: ambulating. grossly no focal deficits, CN2-12 intact Medications Current Medications Medications Dose Ordered Sig/Wagner Route Start Time Stop Time Status Last Admin Dose Admin Ondansetron HCl 4 mg Q4HP PRN IV 06/20/24 10:15 06/20/24 17:13 4 MG Morphine Sulfate 2 mg Q4HPRN PRN IV 06/20/24 10:15 06/20/24 17:13 2 MG Lactated Ringer's 1,000 ml @ 125 mls/hr Q8H IV 06/20/24 10:15 06/21/24 16:56 125 MLS/HR Diagnostic Test (Pha) 1 strip IQ4HR 06/20/24 12:00 06/21/24 20:40 1 STRIP Insulin Human Regular IQ4HR SC 06/20/24 12:00 06/21/24 20:50 4 UNITS Dextrose 50 ml UD PRN IV 06/20/24 10:30 Gabapentin 300 mg TID PO 06/20/24 14:00 06/21/24 21:38 300 MG Hydrochlorothiazide 25 mg DAILY PO 06/21/24 10:00 06/21/24 09:27 25 MG Losartan Potassium 50 mg DAILY PO 06/21/24 10:00 Alprazolam 1 mg HS PRN PO 06/20/24 10:30 Acetaminophen/ Hydrocodone Bitart 1 tab Q4HP PRN PO 06/21/24 10:30 06/21/24 20:40 1 TAB Laboratory Results Laboratory Tests 06/21/24 05:53 Chemistry Test 06/21/24 05:53 Albumin 3.8 g/dL (3.2-4.8) Calcium Level 9.8 mg/dL (8.7-10.4) Total Protein 6.1 g/dL (5.7-8.2) LFT Test 06/21/24 05:53 Alanine Aminotransferase (ALT) 20 U/L (7-40) Alkaline Phosphatase 85 U/L (46-116) Aspartate Amino Transferase (AST) 15 U/L (13-40) Total Bilirubin 0.5 mg/dL (0.2-1.0) Urinalysis Test 06/20/24 04:09 Urine Color Light-yellow (Yellow) Urine Clarity Clear (Clear) Urine pH 6.0 (5.0-9.0) Urine Specific [place] 1.026 (1.001-1.035) Urine Protein 3+ (Negative) H Urine Ketones 1+ (Negative) H Urine Blood Trace /uL (Negative) H Urine Nitrite Negative (Negative) Urine Bilirubin Negative (Negative) Urine Urobilinogen Normal mg/dL (Negative) Urine Leukocyte Esterase Negative /uL (Negative) Urine RBC 1 /hpf (0 - 4) Urine WBC 2 /hpf (0 - 5) Urine Squamous Epithelial Cells Few /hpf (<5) Urine Bacteria None seen /hpf (None Seen) Urine Creatinine 41.09 mg/dL (30.0-125.0) Urine Protein/Creatinine Ratio 6.91 Urine Sodium 32 mmol/L (40-220) L Urine Glucose 4+ mg/dL (Normal) H Urine Total Protein 283.9 mg/dL (1-14) H Labs and/or images reviewed: Labs reviewed by me, Image(s) reviewed by me Assessment/Plan Assessment/Plan Acute pancreatitis -pain in epigastrium, Flagyl possibility to her that, improving but still around the sides towards the flanks like about like fashion. - CT consistent with endocarditis - Lipase elevated - history of polycystic gallstones can still form but unlikely. Patient endorses that she is on rybelsus, is currently being held - NPO, LR fluids, pain control p.r.n., LIANA due to VMN ILANA on CKD - creatinine elevated 1.2 -UA SG elevated, platelets admit Creatinine improving after IV resuscitation -Nephrology consulted by admission to team Leukocytosis Neutrophilia - likely due to pancreatitis, although viral gastroenteritis remains on the differential. otherwise Infectious survey is negative. Denies diarrhea - we will hold off antibiotics at this time History of gastric bypass DVT prophylaxis-Lovenox GI prophylaxis-Pepcid 20 b.i.d. Plan discussed with: Patient My Orders Orders - BURAK MURPHY MD Procedure Category Date Status Time Hydrocodone-Acet PHA 06/21/24 In Process 10/325mg Tab ([place] 10:30 Date of Service: Jun 21, 2024 Billing Provider: BURAK MURPHY MD Common Visit Codes: 03377-[id number] INP/OBS CARE(HIGH) BURAK MURPHY MD Jun 21, 2024 22:50
[2024-06-22 01:00] VITALS: BP 129/75; PULSE 77; RESP 20; TEMP 97.8; O2SAT 95
[2024-06-22 05:00] VITALS: BP 129/63; PULSE 79; RESP 18; TEMP 98; O2SAT 92
[2024-06-22 06:52] LABS: Basophils # (auto) 0 10 ^3/uL (0-0.2); Basophils % (auto) 0.5 % (0.0-2.0); Eosinophils # (auto) 0.2 10 ^3/uL (0-0.8); Hematocrit 38.2 % (36.0-46.0); Hemoglobin 12.6 g/dL (12.2-16.2); Lymphocytes # (auto) 1.9 10 ^3/uL (0.4-5.4); Lymphocytes % (auto) 20.3 % (10.0-50.0); Mean Corpuscular Hemoglobin 27.6 pg (28.0-32.0); Mean Corpuscular Hgb Conc. 32.9 g/dL (32.0-36.0); Mean Corpuscular Volume 83.8 fL (80.0-100.0); Monocytes # (auto) 0.7 10 ^3/uL (0-1.3); Monocytes % (auto) 7.2 % (0.0-12.0); Neutrophils # (auto) 6.6 10 ^3/uL (1.6-8.6); Platelet Count (auto) 279 10^3/uL (140-450); Red Blood Cells 4.56 10^6/uL (4.0-5.20); Red Cell Distribution Width 15.7 % (11.8-14.3); White Blood Cell 9.4 10^3/uL (4.4-10.8)
[2024-06-22 07:20] LABS: Alanine Aminotransferase 19 U/L (7-40); Albumin 3.4 g/dL (3.2-4.8); Alkaline Phosphatase 85 U/L (46-116); Anion Gap 8 (5-15); Aspartate Aminotransferase 16 U/L (13-40); BUN/Creatinine Ratio 25.2 (10.0-20.0); Blood Urea Nitrogen 26 mg/dL (9-23); Calcium 9.3 mg/dL (8.7-10.4); Carbon Dioxide 30 mmol/L (20-31); Chloride 100 mmol/L (98-107); Glucose 140 mg/dL (74-106); Potassium 4.1 mmol/L (3.5-5.1); Sodium 138 mmol/L (136-145)
[2024-06-22 07:21] LABS: Bilirubin, Total 0.5 mg/dL (0.2-1.0); Total Protein 5.4 g/dL (5.7-8.2)
[2024-06-22] MEDS: FAMOTIDINE (10MG/ML) 2ML VL IV SCH (08:46)
[2024-06-22 09:00] VITALS: BP 123/70; PULSE 82; RESP 18; TEMP 98.4; O2SAT 94
[2024-06-22] MEDS ORDERED: FAMO20TA10 PO (11:08)
--- NOTE | 2024-06-22 11:10 | DVHDS2 ---
Discharge Summary Date of Admission Jun 20, 2024 at 10:11 Date of Discharge: Jun 22, 2024 Labs/Diagnostic Data: Laboratory Results Test 06/22/24 08:35 06/22/24 06:13 06/20/24 04:24 06/20/24 04:09 POC Glucose 153 mg/dl (70-106) White Blood Count 9.4 10^3/uL (4.4-10.8) Red Blood Count 4.56 10^6/uL (4.0-5.20) Hemoglobin 12.6 g/dL (12.2-16.2) Hematocrit 38.2 % (36.0-46.0) Mean Corpuscular Volume 83.8 fL (80.0-100.0) Mean Corpuscular Hemoglobin 27.6 pg (28.0-32.0) Mean Corpuscular Hemoglobin Concent 32.9 g/dL (32.0-36.0) Red Cell Distribution Width 15.7 % (11.8-14.3) Platelet Count 279 10^3/uL (140-450) Mean Platelet Volume 8.1 fL (6.9-10.8) Neutrophils (%) (Auto) 70.0 % (37.0-80.0) Lymphocytes (%) (Auto) 20.3 % (10.0-50.0) Monocytes (%) (Auto) 7.2 % (0.0-12.0) Eosinophils (%) (Auto) 2.0 % (0.0-7.0) Basophils (%) (Auto) 0.5 % (0.0-2.0) Neutrophils # (Auto) 6.6 10 ^3/uL (1.6-8.6) Lymphocytes # (Auto) 1.9 10 ^3/uL (0.4-5.4) Monocytes # (Auto) 0.7 10 ^3/uL (0-1.3) Eosinophils # (Auto) 0.2 10 ^3/uL (0-0.8) Basophils # (Auto) 0 10 ^3/uL (0-0.2) Nucleated Red Blood Cells 0.0 % Sodium Level 138 mmol/L (136-145) Potassium Level 4.1 mmol/L (3.5-5.1) Chloride Level 100 mmol/L (98-107) Carbon Dioxide Level 30 mmol/L (20-31) Anion Gap 8 (5-15) Blood Urea Nitrogen 26 mg/dL (9-23) Creatinine 1.03 mg/dL (0.550-1.02) Glomerular Filtration Rate Calc 62 mL/min (>90) BUN/Creatinine Ratio 25.2 (10.0-20.0) Serum Glucose 140 mg/dL (74-106) Calcium Level 9.3 mg/dL (8.7-10.4) Total Bilirubin 0.5 mg/dL (0.2-1.0) Aspartate Amino Transferase (AST) 16 U/L (13-40) Alanine Aminotransferase (ALT) 19 U/L (7-40) Alkaline Phosphatase 85 U/L (46-116) Total Protein 5.4 g/dL (5.7-8.2) Albumin 3.4 g/dL (3.2-4.8) Hemoglobin A1c 10.2 % A1C (<5.7) Uric Acid 9.9 mg/dL (3.1-7.8) Phosphorus Level 4.7 mg/dL (2.4-5.1) Magnesium Level 2.1 mg/dL (1.6-2.6) B-Type Natriuretic Peptide 11.67 pg/mL (0-100) Lipase 370 U/L (12-53) Vitamin D 25-Hydroxy 23.1 ng/mL (30.0-100) Parathyroid Hormone (Intact) 15.2 pg/mL (18.4-80.1) Urine Color Light-yellow (Yellow) Urine Clarity Clear (Clear) Urine pH 6.0 (5.0-9.0) Urine Specific [place] 1.026 (1.001-1.035) Urine Protein 3+ (Negative) Urine Ketones 1+ (Negative) Urine Blood Trace /uL (Negative) Urine Nitrite Negative (Negative) Urine Bilirubin Negative (Negative) Urine Urobilinogen Normal mg/dL (Negative) Urine Leukocyte Esterase Negative /uL (Negative) Urine RBC 1 /hpf (0 - 4) Urine WBC 2 /hpf (0 - 5) Urine Squamous Epithelial Cells Few /hpf (<5) Urine Bacteria None seen /hpf (None Seen) Urine Creatinine 41.09 mg/dL (30.0-125.0) Urine Protein/Creatinine Ratio 6.91 Urine Sodium 32 mmol/L (40-220) Urine Glucose 4+ mg/dL (Normal) Urine Total Protein 283.9 mg/dL (1-14) Other Laboratory Tests 06/22/24 06:13 Brief Hx & Hospital Course: 63-year-old female presented to the ED with chief complaint of abdominal pain onset was yesterday, patient describes it as epigastric pain with nausea and vomiting, loose stools, pain is 7/10. Patient reports running out of strips for her Accu-Chek machine and not checking blood sugar at home for the past few weeks. Patient is also noted to have been taking Rybelsus. Upon arrival to the ED patient's blood sugar was 407. CT of the abdomen and pelvis show pancreatitis, WBCs 17.9, absolute neutrophils 15.4, chloride 97, BUN 30, creatinine 1.48, lipase 370. Patient was placed on fluids, pain meds p.r.n.. Nephrology is consulted and believed that the symptoms are likely due to increasing dose of G LP 1 agonist rybelsus. Patient's starts to improve p.o. tolerance, abdominal pain and nausea results. Patient is stable to discharge with the plan below diagnosis: acute pancreatitis 2/2 GLP1 agonist side effect; ILANA due to BM in; ILANA on CKD; leukocytosis; neutrophilia; history of gastric bypass discharge summary - stop rybelsus - start pepcid 20mg bid for 1 month. - avoid spice diet, alcohol, chocolate or late night eating. avoid high fat diet. hydrate well with water. for 1-2 months. - f/u with PCP. review need for rybelsus. and hospital discharge review - refer to nephrology [facility] for CKD - continue other home medications not mentioned here. Visitation and planning required 35 minutes Condition at Discharge: Fair Final Diagnosis/Problems List pancreatitis likely due to GLP1 agonist side effect Discharge Disposition: Home Discharge Instruct/Medications Diet: See Comment Diet comment: avoid spice diet, alcohol, chocolate or late night eating. avoid high fat diet. Activity: No Restrictions, As Tolerated Follow Up/Referral: PCP. Medications: as per dc instructions. Discharge Statement: "Patient was advised to return to the ER or call 911 if any headaches, dizziness, shortness of breath, chest pain, abdominal pain, bleeding, fevers, or worsening of medical condition. Patient was counseled about treatment plan, medications, possible side effects, patientverbalized understanding. All questions were answered to the best of my ability. This discharge took greater then 30 minutes in planning, reviewing documentation, counseling the patient, and discussing with other team members." ASSESSMENT ASSESSMENT Assessment acute pancreatitis 2/2 GLP1 agonist side effect; ILANA due to BM in; ILANA on CKD; leukocytosis; neutrophilia; history of gastric bypass Date of Service: Jun 22, 2024 Billing Provider: BURAK MURPHY MD Common Visit Codes: 07731-RIT/OBS DISCH DAY >30min BURAK MURPHY MD Jun 22, 2024 11:10
--- NOTE | 2024-06-22 12:09 | DVHPN2 ---
Progress Note Date Seen: Jun 22, 2024 Resident Creating Document: JHMadalynJPARADISE RivasROBERTOBURKE RESIDENT Medical Necessity Reason Pt with a Central, PICC or Fol: No Subjective Review of Systems Patient is a 63-year-old female with a past medical history of type 2 diabetes mellitus, hypertension, hyperlipidemia came to the ED with a chief complaint of abdominal pain for 1 day prior to admission. Patient reported epigastric abdominal pain associated with nausea and vomiting pain radiating to the back. On admission patient found to have elevated BUN and creatinine nephrology was consulted for acute kidney injury Review of systems Patient seen and examined at the bedside. Patient is alert and oriented to time, place and person. Patient's blood pressure at the time of examination 123/70 mmHg, heart rate 82 per minute regular, SpO2 94 % on room air. Patient complains of mild abdominal pain 2/10 intensity and moderate tenderness in the epigastrium. Patient reported that she is tolerating water and clear liquid diet without nausea, vomiting, worsening of abdominal pain. Other Systems: Patient seen and examined by myself today in follow-up I agree with the medicine resident assessment and plan Objective vital signs Vital Sign Date Time Temp Pulse Resp B/P (MAP) Pulse Ox O2 Delivery O2 Flow Rate FiO2 06/22/24 09:00 98.4 82 18 123/70 (87) 94 98.4 06/22/24 08:00 Room Air* 0 21 Total Intake and Output 06/21/24 06/21/24 06/22/24 15:00 23:00 07:00 Intake Total 1500 ml 2210 ml Output Total 800 ml 1800 ml Balance 700 ml 410 ml medications Current Medications Medications Dose Ordered Sig/Wagner Route Start Time Stop Time Status Last Admin Dose Admin Ondansetron HCl 4 mg Q4HP PRN IV 06/20/24 10:15 06/20/24 17:13 Morphine Sulfate 2 mg Q4HPRN PRN IV 06/20/24 10:15 06/20/24 17:13 Lactated Ringer's 1,000 ml @ 125 mls/hr Q8H IV 06/20/24 10:15 06/22/24 10:20 Diagnostic Test (Pha) 1 strip IQ4HR 06/20/24 12:00 06/22/24 08:36 Insulin Human Regular IQ4HR SC 06/20/24 12:00 06/22/24 08:56 Dextrose 50 ml UD PRN IV 06/20/24 10:30 Gabapentin 300 mg TID PO 06/20/24 14:00 06/22/24 05:17 Hydrochlorothiazide 25 mg DAILY PO 06/21/24 10:00 06/22/24 08:48 Losartan Potassium 50 mg DAILY PO 06/21/24 10:00 Alprazolam 1 mg HS PRN PO 06/20/24 10:30 Acetaminophen/ Hydrocodone Bitart 1 tab Q4HP PRN PO 06/21/24 10:30 06/22/24 05:16 Famotidine 20 mg Q12HR IV 06/22/24 10:00 06/22/24 08:46 Examination Physical Examination Gen - no pallor, no icterus, no cyanosis, no clubbing, no LAD, no edema . Skin - Patients skin is warm and dry.. HEENT - normocephalic, atraumatic, moist mucous membranes. Neck - full ROM, no LAD, no JVD Pulmonary - B/L vesicular breath sounds. no crackles , no wheezing, no stridor. cardiovascular - normal S1,S2 heard. no murmurs heard. peripheral pulses normal radial 2+, pedal 2+. capillary refill normal <2 secs. GI - soft abdomen with tenderness to palpation in the epigastrium . no hepatospleenomegaly. Bowel sounds+ Neurological - Patient is A/O X 3 . Bilateral upper extremity strength 5/5, bilateral lower extremity strength 5/5, no facial droop, normal speech, no tremor, no sensory deficiets. laboratory and microbiology Laboratory Tests 06/22/24 06:13 Test 06/22/24 06:13 Range/Units Serum Glucose 140 H 74-106 mg/dL Problem List/Assessment/Plan Problem List/Assessment/Plan Assessment and plan # ILANA prerenal on CKD likely hemodynamically mediated - serum creatinine 1.48--> 1.2-->1.03 - BUN 30--> 25-->24 - GFR 40-->52-->62 - serum sodium 136--> 139-->143 - serum potassium 5--> 3.8-->4.1 - urine sodium 32 - urine creatinine 41 - FENa 0.8% - patient's serum creatinine and BUN improving after she was started on IV fluids Ringer's lactate at 125 mL/hour - avoid nephrotoxic medication - continue IV fluids # CKD likely stage III due to probable diabetic nephropathy - GFR @ 62 ml/min - patient has 3+ urine protein - urine total protein to 283.9 mg/dL - urine glucose 4+ - PTH 15.2 pg/mL - patient was advised to be started on KAYLYNN Inhib/ ARB, SGLT 2 inhibitor for management of CKD - patient advised to follow up in the outpatient clinic for further workup of CKD # uncontrolled type 2 diabetes mellitus - HbA1c 10.7 % - patient reported be taking Rybelsus - insulin sliding scale # acute pancreatitis - elevated lipase level - CT abdomen pelvis without contrast showing peripancreatic fat stranding, hepatic steatosis - managed as per hospitalist # dehydration - on IV fluids Nephrology inpatient workup is required. Patient was advised to follow up in the outpatient clinic for further workup of her CKD and proteinuria. Thank you for consulting Nephrology Goals of care discussed with the patient for over 25 minutes. Full code. Plan discussed with Plan discussed with: Patient PROMISE CANDELARIA RESIDENT Jun 22, 2024 12:09 ERI TIRADO MD Jun 22, 2024 14:37
[2024-06-22 12:12] VITALS: BP 123/62; PULSE 80; RESP 20; TEMP 97.9; O2SAT 92
== END 2024-06-22 15:10 | disposition home or self-care (01) | DRG 438 ==
LOC: ER 03:47 → OVERFLOW 10:11 → WEST WING 15:09
PROVIDERS: ADMIT Registered Nurse General Practice; ATTEND Student in an Organized Health Care Education/Training Program
DX: K85.30 Drug induced acute pancreatitis without necrosis or infection (principal); N17.0 Acute kidney failure with tubular necrosis; I38 Endocarditis, valve unspecified; R65.10 Systemic inflammatory response syndrome (SIRS) of non-infectious origin without acute organ dysfunction; Z68.30 Body mass index [BMI] 30.0-30.9, adult; E66.9 Obesity, unspecified; E11.65 Type 2 diabetes mellitus with hyperglycemia; E86.0 Dehydration; N18.30 Chronic kidney disease, stage 3 unspecified; I12.9 Hypertensive chronic kidney disease with stage 1 through stage 4 chronic kidney disease, or unspecified chronic kidney disease; E11.22 Type 2 diabetes mellitus with diabetic chronic kidney disease; K76.0 Fatty (change of) liver, not elsewhere classified; E78.5 Hyperlipidemia, unspecified; T44.4X5A Adverse effect of predominantly alpha-adrenoreceptor agonists, initial encounter; E11.40 Type 2 diabetes mellitus with diabetic neuropathy, unspecified; Z90.49 Acquired absence of other specified parts of digestive tract; Z98.84 Bariatric surgery status; Y92.89 Other specified places as the place of occurrence of the external cause
CPT/HCPCS: 36415; 74176; 80053; 81001; 82306; 82570; 82962; 83036; 83690; 83735; 83880; 83970; 84100; 84156; 84300; 84550; 85025; 96361; 96374; G0378; J1815; J2405; J3490